=== PATIENT | female | born 1970 | race Caucasian/White ===

== ENCOUNTER 2018-02-28 10:55 | Outpatient (CLI) | END 2018-02-28 17:50 | disposition home or self-care (01) ==

== ENCOUNTER 2018-03-02 09:24 | Outpatient (CLI) | END 2018-03-02 12:10 | disposition home or self-care (01) ==

== ENCOUNTER 2018-03-23 05:43 | Inpatient (IN) | END 2018-03-26 15:20 | disposition home or self-care (01) | DRG 766 ==